=== PATIENT | male | born 1980 | race Caucasian/White ===

== ENCOUNTER 2020-08-22 17:37 | Emergency (ER) | payer OTHER ==
[~2020-08-22] VITALS: Ht 175.3 cm; Wt 86.2 kg
[2020-08-22 17:39] VITALS: Ht 175.3 cm; Wt 86.2 kg
[2020-08-22 19:02] VITALS: BP 107/67
[2020-08-22 19:20] LABS: BASOPHIL % 0.4 % (0.2-1.5); PLATELET COUNT 146 x10^3mcL (152-348); RED CELL DISTRIBUTION WIDTH 13.2 % (12.1-16.2)
[2020-08-22 19:34] LABS: ALKALINE PHOSPHATASE 55 U/L (46-116); ALT/SGPT 57 U/L (16-63); AST/SGOT 47 U/L (15-37); BILIRUBIN TOTAL 0.6 mg/dL (0.20-1.00); CALCIUM 8.7 mg/dL (8.5-10.1); CARBON DIOXIDE 27.4 mmol/L (21-32); CHLORIDE SERUM 95 mmol/L (98-107); GFR1 > 60 mL/min; GLUCOSE SERUM 101 mg/dL (74-106); POTASSIUM SERUM 3.5 mmol/L (3.5-5.1); SODIUM SERUM 132 mmol/L (136-145); TOTAL PROTEIN, SERUM 8.2 g/dL (6.4-8.2)
== END 2020-08-22 20:09 | disposition home or self-care (01) ==
LOC: ED 17:37
PROVIDERS: Emergency Medicine
DX: U07.1 COVID-19 (principal); I10 Essential (primary) hypertension
CPT/HCPCS: J7030